=== PATIENT | female | born 1970 | race American Indian/Alaskan Native ===

== ENCOUNTER 2019-11-11 18:41 | Emergency (ER) | payer SELFPAY ==
--- NOTE | 2019-11-11 18:56 | Emergency Department Report ---
{null, Blank Doc - Documentation Documentation: 48-year-old female that is not complaint with HTN medications presents with he adache and uncontrolled HTN. This initial assessment/diagnostic orders/clinical plan/treatment(s) is/are subject to change based on patient's health status, clinical progression and re- assessment by fellow clinical providers in the ED. Further treatment and workup at subsequent clinical providers discretion. Patient/guardians urged not to elope from the ED as their condition may be serious if not clinically assessed and managed. Initial orders include: 1- Patient sent to MAIN ED for further evaluation and treatment 2- labs 3- CT head }
[2019-11-11 19:17] LABS: Basophils % (Auto) 0.6 % (0.0-1.8); Eosinophils # (Auto) 0.2 K/mm3 (0.0-0.4); Eosinophils % (Auto) 3.2 % (0.0-4.3); Hematocrit 42.8 % (30.3-42.9); Hemoglobin 14.6 gm/dl (10.1-14.3); Lymphocytes # (Auto) 3.2 K/mm3 (1.2-5.4); Lymphocytes % (Auto) 42.8 % (13.4-35.0); Mean Corpuscular HGB Conc 34 % (30-34); Mean Corpuscular Volume 83 fl (79-97); Monocytes # (Auto) 0.4 K/mm3 (0.0-0.8); Monocytes % (Auto) 5.2 % (0.0-7.3); Platelet Count 325 K/mm3 (140-440); Red Blood Count 5.14 M/mm3 (3.65-5.03); Red Cell Distribution Width 14.1 % (13.2-15.2)
[2019-11-11 19:40] LABS: BUN/Creatinine Ratio 22; Blood Urea Nitrogen 13 mg/dL (7-17); Calcium 8.8 mg/dL (8.4-10.2); Hemolysis Index 18
--- NOTE | 2019-11-11 20:10 | Cat Scan Report ---
{null, CT head/brain wo con INDICATION / CLINICAL INFORMATION: 48 years Female; headache w/ HTN. TECHNIQUE: Routine CT head without contrast. All CT scans at this location are performed using CT dos e reduction for ALARA by means of automated exposure control. COMPARISON: None. FINDINGS: BRAIN / INTRACRANIAL CONTENTS: No acute hemorrhage, mass effect, midline shift, hydrocephalus, or acu te, large territorial infarct. No chronic infarct or atrophy appreciated. No significant white matter abnormality. CRANIOCERVICAL JUNCTION: No significant abnormality. ORBITS: No significant abnormality of visualized orbits. SINUSES / MASTOIDS: No significant abnormality the visualized paranasal sinuses or mastoid air cells. ADDITIONAL FINDINGS: Prominent soft tissues seen in the roof the nasopharynx, most likely related to reactive adenoidal tissue. IMPRESSION: 1. No focal mass, hemorrhage, hydrocephalus, or acute, large territorial infarct. Signer Name: Michael Tidwlel MD, III Signed: 11/11/2019 8:05 PM Workstation Name: [id number] }
[2019-11-11] MEDS ORDERED: cloNIDine 0.2 MG TAB ONE (22:13)
[2019-11-11] MEDS ORDERED: cloNIDine 0.2 MG TAB PO ONE (22:14)
[2019-11-11] MEDS ORDERED: SODIUM CHLORIDE 0.9% 1000 ML 1,000 ML IV ONE (22:17)
--- NOTE | 2019-11-11 22:21 | Emergency Department Report ---
{null, HPI - General Chief Complaint: Back Pain/Injury Time Seen by Provider: 11/11/19 18:54 - HPI HPI: Room 18 The patient is a 48-year-old female present with a chief complaint of headache back pain and fatigue. Patient states for several weeks she has felt fatigued dizziness headache and lower right back pain. Patient states her back pain has been dull and constant in nature without radiation. Patient denies nausea vomiting. Patient states she is also had a headache for several weeks and occasionally has dizziness. Patient denies history of fever. Patient denies dysuria or hematuria. Patient gives her pain a score of 7/10 ED Past Medical Hx - Past Medical History Previous Medical History?: Yes Hx Hypertension: Yes Hx Diabetes: Yes (type 2) - Surgical History Past Surgical History?: Yes Hx Appendectomy: Yes - Family History Family history: no significant - Social History Smoking Status: Never Smoker Substance Use Type: None (Denies illicit drug use), Alcohol (Occasional) - Medications Home Medications: Home Medications Medication Instructions Recorded Confirmed Last Taken Type Ibuprofen [Motrin 600 MG tab] 600 mg PO Q8H PRN #25 tablet 08/07/13 04/25/15 Unknown Rx hydroCHLOROthiazide [Hctz] 12.5 mg PO QDAY #30 capsule 08/07/13 04/25/15 Unknown Rx metFORMIN [Glucophage] 500 mg PO BID #60 tablet 08/07/13 04/25/15 Unknown Rx Ciprofloxacin HCl [Ciprofloxacin 500 mg PO Q12H #14 tab 04/25/15 Unknown Rx TAB] Butalb/Acetamin/Caff 50-325-40 1 tab PO Q6HR PRN #10 tab 11/11/19 Unknown Rx [Fioricet 50-325-40] amLODIPine 5 mg PO DAILY #90 tab 11/11/19 Unknown Rx ED Review of Systems ROS: Stated complaint: MIGRAINE/BACK PAIN Other details as noted in HPI Constitutional: denies: fever Eyes: denies: eye pain ENT: denies: throat pain Respiratory: no symptoms reported Cardiovascular: denies: chest pain Endocrine: no symptoms reported Gastrointestinal: denies: abdominal pain, nausea, vomiting Genitourinary: denies: dysuria, hematuria Musculoskeletal: back pain Neurological: headache, vertigo Physical Exam - Physical Exam Vital Signs: Vital Signs 02/19/20 02/19/20 02/19/20 18:54 22:06 22:14 Temperature 99.1 F Pulse Rate 102 H 105 H 103 H Respiratory 18 18 Rate Blood Pressure 186/119 206/93 Blood Pressure 190/105 [right arm] O2 Sat by Pulse 96 98 Oximetry Physical Exam: GENERAL: The patient is well-developed well-nourished female lying on stretcher not appearing to be in acute distress. [] HEENT: Normocephalic. Atraumatic. Extraocular motions are intact. Patient has moist mucous membranes. NECK: Supple. No meningitic signs are noted. Trachea midline CHEST/LUNGS: Clear to auscultation. There is no respiratory distress noted. HEART/CARDIOVASCULAR: Regular. There is no tachycardia. There is no gallop rub or murmur. ABDOMEN: Abdomen is soft, nontender. Patient has normal bowel sounds. There is no abdominal distention. SKIN: There is no rash. There is no edema. There is no diaphoresis. NEURO: The patient is awake, alert, and oriented. The patient is cooperative. The patient has no focal neurologic deficits. The patient has normal speech MUSCULOSKELETAL: There is no CVA tenderness. There is no evidence of acute inju ry. ED Course Vital Signs 11/11/19 11/11/19 11/11/19 18:54 22:06 22:14 Temperature 99.1 F Pulse Rate 102 H 105 H 103 H Respiratory 18 18 Rate Blood Pressure 186/119 206/93 Blood Pressure 190/105 [right arm] O2 Sat by Pulse 96 98 Oximetry ED Medical Decision Making - Lab Data Result diagrams: 11/11/19 18:59 11/11/19 18:59 Laboratory Tests 11/11/19 11/11/19 11/11/19 18:59 18:59 18:59 WBC 7.4 RBC 5.14 H Hgb 14.6 H Hct 42.8 MCV 83 MCH 28 MCHC 34 RDW 14.1 Plt Count 325 Lymph % (Auto) 42.8 H Granite % (Auto) 5.2 Eos % (Auto) 3.2 Baso % (Auto) 0.6 Lymph # 3.2 Granite # 0.4 Eos # 0.2 Baso # 0.0 Seg Neutrophils % 48.2 Seg Neutrophils # 3.6 Sodium 138 Potassium 4.0 Chloride 101.7 Carbon Dioxide 21 L Anion Gap 19 BUN 13 Creatinine 0.6 L Estimated GFR > 60 BUN/Creatinine Ratio 22 Glucose 410 H Calcium 8.8 TSH Free T4 HCG, Qual Negative Urine Color Urine Turbidity Urine pH Ur Specific [place] Urine Protein Urine Glucose (UA) Urine Ketones Urine Blood Urine Nitrite Urine Bilirubin Urine Urobilinogen Ur Leukocyte Esterase Urine WBC (Auto) Urine RBC (Auto) U Epithel Cells (Auto) Urine Mucus 11/11/19 11/11/19 18:59 22:45 WBC RBC Hgb Hct MCV MCH MCHC RDW Plt Count Lymph % (Auto) Granite % (Auto) Eos % (Auto) Baso % (Auto) Lymph # Granite # Eos # Baso # Seg Neutrophils % Seg Neutrophils # Sodium Potassium Chloride Carbon Dioxide Anion Gap BUN Creatinine Estimated GFR BUN/Creatinine Ratio Glucose Calcium TSH 2.770 Free T4 1.29 HCG, Qual Urine Color Yellow Urine Turbidity Slightly-cloudy Urine pH 5.0 Ur Specific [place] 1.038 H Urine Protein <15 mg/dl Urine Glucose (UA) >=500 Urine Ketones Neg Urine Blood Neg Urine Nitrite Neg Urine Bilirubin Neg Urine Urobilinogen < 2.0 Ur Leukocyte Esterase Neg Urine WBC (Auto) 6.0 Urine RBC (Auto) 3.0 U Epithel Cells (Auto) 9.0 Urine Mucus Few - Radiology Data Radiology results: report reviewed (CT head, CT abdomen pelvis), image reviewed (CT head, CT abdomen pelvis) Findings [facility] [address] [place] [address] Cat Scan Report Signed Patient: KANCHAN CHOPRA MR#: [id number] : 1970 Acct:[id number] Age/Sex: 48 / F ADM Date: 11/11/19 Loc: ED Attending Dr: Ordering Physician: SIMA BRICENO NP Date of Service: 11/11/19 Procedure(s): CT head/brain wo con Accession Number(s): [id number] cc: SIMA BRICENO NP CT head/brain wo con INDICATION / CLINICAL INFORMATION: 48 years Female; headache w/ HTN. TECHNIQUE: Routine CT head without contrast. All CT scans at this location are performed using CT dose reduction for ALARA by means of automated exposure control. COMPARISON: None. FINDINGS: BRAIN / INTRACRANIAL CONTENTS: No acute hemorrhage, mass effect, midline shift, hydrocephalus, or acute, large territorial infarct. No chronic infarct or atrophy appreciated. No significant white matter abnormality. CRANIOCERVICAL JUNCTION: No significant abnormality. ORBITS: No significant abnormality of visualized orbits. SINUSES / MASTOIDS: No significant abnormality the visualized paranasal sinuses or mastoid air cells. ADDITIONAL FINDINGS: Prominent soft tissues seen in the roof the nasopharynx, most likely related to reactive adenoidal tissue. IMPRESSION: 1. No focal mass, hemorrhage, hydrocephalus, or acute, large territorial infarct. Signer Name: Michael Tidwell MD, III Signed: 11/11/2019 8:05 PM Workstation Name: [id number] Transcribed By: HR Dictated By: Michael Tidwell MD Electronically Authenticated By: Michael Tidwell MD Signed Date/Time: 11/11/192004 DD/ 03 TD/TT: Findings [facility] [address] [place] [address] Cat Scan Report Signed Patient: KANCHAN CHOPRA MR#: [id number] : 1970 Acct:[id number] Age/Sex: 48 / F ADM Date: 11/11/19 Loc: ED Attending Dr: Ordering Physician: COURTNEY YAN MD Date of Service: 11/11/19 Procedure(s): CT abdomen pelvis wo con Accession Number(s): [id number] cc: COURTNEY YAN MD CT abdomen pelvis wo con INDICATION: Right flank pain. TECHNIQUE: All CT scans at this location are performed using the following dose modulation technique: Automated exposure control. Helical slices were obtained through the abdomen and pelvis. No contrast is administered. COMPARISON: None available. FINDINGS: Abdomen: No acute abnormality is seen in the lower chest. There is fatty infiltration of the liver. The liver is enlarged measuring 23 cm in length. The spleen, pancreas, adrenal glands, and small bowel show no acute abnormality. There is no obstruction, inflammation, or free air. There are no abnormal fluid collections. Is a tiny calyceal stone in the lower pole of the left kidney. There is an 11 mm angiomyolipoma in the lower pole the right kidney. There is a small cyst in the mid right kidney. There is no hydronephrosis. There are no ureteral calculi. There is no adenopathy. Pelvis: There is no obstruction or free air. There are no abnormal collections. There is a small physiologic appearing cyst in the right ovary measures 14 mm. Surgical clips are noted in the right upper quadrant characteristic of prior appendectomy. On review of bone windows, no acute osseous abnormalities are seen. IMPRESSION: There is hepatomegaly with fatty infiltration of liver. There is no obstruction, inflammation, or free air. There are no abnormal fluid collections. There is minimal left nephrolithiasis. There are no ureteral calculi. There is no hydronephrosis. Signer Name: Curly Candelaria MD Signed: 11/11/2019 11:26 PM Workstation Name: [id number] Transcribed By: Dictated By: Curly Candelaria MD Electronically Authenticated By: Curly Candelaria MD Signed Date/Time: 11/11/192325 DD/ 19 TD/TT: - Differential Diagnosis Hypertensive urgency, ICH, renal colic, pyelonephritis Critical care attestation.: If time is entered above; I have spent that time in minutes in the direct care of this critically ill patient, excluding procedure time. ED Disposition Clinical Impression: Hypertensive urgency, Headache, Hyperglycemia Disposition: DC-01 TO HOME OR SELFCARE Is pt being admited?: No Does the pt Need Aspirin: No Condition: Stable Instructions: Hypertensive Crisis (ED), Hypertension (ED) Additional Instructions: Return to the emergency department should you develop worsening symptoms, inability to tolerate food or liquids, high fever or any other concerns Prescriptions: amLODIPine 5 mg PO DAILY #90 tab Butalb/Acetamin/Caff 50-325-40 [Fioricet 50-325-40] 1 tab PO Q6HR PRN #10 tab PRN Reason: Headache Referrals: [facility] [Outside] - 3-5 Days Time of Disposition: 23:47 }
[2019-11-11] MEDS ORDERED: INSULIN REGULAR, HUMAN 100 UNITS/1 ML IV ONE (22:27)
[2019-11-11 23:12] LABS: Free T4 (Free Thyroxine) 1.29 ng/dL (0.76-1.46)
[2019-11-11 23:16] LABS: Bilirubin,Urine NEG (Negative); Blood,Urine NEG (Negative); Color,Urine Yellow (Yellow); Mucus,Urine FEW /HPF; Protein,Urine <15 mg/dL mg/dL (Negative); Urobilinogen,Urine < 2.0 mg/dL (<2.0)
--- NOTE | 2019-11-11 23:31 | Cat Scan Report ---
{null, CT abdomen pelvis wo con INDICATION: Right flank pain. TECHNIQUE: All CT scans at this location are performed using the following dose modulation technique: Automated exposure control. Helical slices were obtained through the abdomen and pelvis. No contrast is adminis tered. COMPARISON: None available. FINDINGS: Abdomen: No acute abnormality is seen in the lower chest. There is fatty infiltration of the liver. T he liver is enlarged measuring 23 cm in length. The spleen, pancreas, adrenal glands, and small bowel show no acute abnormality. There is no obstruction, inflammation, or free air. There are no abnormal fluid collections. Is a tiny calyceal stone in the lower pole of the left kidney. There is an 11 mm angiomyolipoma in th e lower pole the right kidney. There is a small cyst in the mid right kidney. There is no hydronephro sis. There are no ureteral calculi. There is no adenopathy. Pelvis: There is no obstruction or free air. There are no abnormal collections. There is a small phys iologic appearing cyst in the right ovary measures 14 mm. Surgical clips are noted in the right upper quadrant characteristic of prior appendectomy. On review of bone windows, no acute osseous abnormalities are seen. IMPRESSION: There is hepatomegaly with fatty infiltration of liver. There is no obstruction, inflammation, or free air. There are no abnormal fluid collections. There is minimal left nephrolithiasis. There are no ureteral calculi. There is no hydronephrosis. Signer Name: Curly Candelaria MD Signed: 11/11/2019 11:26 PM Workstation Name: [id number] }
[2019-11-11 23:52] VITALS: BP 149/78
== END 2019-11-12 00:39 | disposition home or self-care (01) ==
LOC: ED 18:41
DX: E11.65 Type 2 diabetes mellitus with hyperglycemia (principal); I16.0 Hypertensive urgency; I10 Essential (primary) hypertension; Z90.89 Acquired absence of other organs; Z79.899 Other long term (current) drug therapy
CPT/HCPCS: 36415; 70450; 74176; 80048; 81001; 82962; 84439; 84443; 84703; 85025; 96361; 96374; 99284; J7030; J1815